=== PATIENT | female | born 1970 | race Hispanic/Latino ===

== ENCOUNTER → 2024-08-20 | Outpatient (CLI) | payer OTHER ==
--- NOTE | 2024-08-20 14:54 | HMCIMG ---
EXAM: CR Abdomen, 4 View. CLINICAL HISTORY: LEFT UPPER QUAD PAIN COMPARISON: None provided. FINDINGS: BOWEL: The bowel gas pattern is within normal limits. Abundant colonic fecal matter may reflect constipation. PERITONEUM/SOFT TISSUES: No free air evident. No pathologic appearing calcification. BONES: No aggressive appearing osseous lesion seen. IMPRESSION: The bowel gas pattern is within normal limits. Abundant colonic fecal matter may reflect constipation. /[place]
== END | disposition home or self-care (01) ==
LOC: RAH 10:59
PROVIDERS: ATTEND Physician Assistant Medical
DX: R10.12 Left upper quadrant pain (principal)
CPT/HCPCS: 74021